=== PATIENT | male | born 2000 | race Caucasian/White ===

== ENCOUNTER 2023-11-23 11:53 | Outpatient (REF) | payer MEDICAID, SELFPAY ==
--- NOTE | ~2023-11-23 | XR_ITS ---
EXAMINATION: XR CALCANEUS, RIGHT XR CALCANEUS, LEFT CLINICAL INFORMATION: Pain. COMPARISON: None TECHNIQUE: Lateral and axial views of the right and left calcanei were obtained. FINDINGS: RIGHT CALCANEUS: No fracture. Alignment is anatomic. Joint spaces are maintained. Small enthesopathic spur is present at the Achilles tendon insertion on the calcaneus. LEFT CALCANEUS: No fracture. Alignment is anatomic. Joint spaces are maintained. Small enthesopathic spurs are present at the Achilles tendon insertion and plantar fascial origin on the calcaneus. XR/XR calcaneus RT min 2V IMPRESSION: Small enthesopathic spurs at the Achilles tendon insertions bilaterally and at the left plantar fascial origin. No acute osseous findings.
--- NOTE | ~2023-11-23 | XR_ITS ---
EXAMINATION: XR CALCANEUS, RIGHT XR CALCANEUS, LEFT CLINICAL INFORMATION: Pain. COMPARISON: None TECHNIQUE: Lateral and axial views of the right and left calcanei were obtained. FINDINGS: RIGHT CALCANEUS: No fracture. Alignment is anatomic. Joint spaces are maintained. Small enthesopathic spur is present at the Achilles tendon insertion on the calcaneus. LEFT CALCANEUS: No fracture. Alignment is anatomic. Joint spaces are maintained. Small enthesopathic spurs are present at the Achilles tendon insertion and plantar fascial origin on the calcaneus. XR/XR calcaneus LT min 2V IMPRESSION: Small enthesopathic spurs at the Achilles tendon insertions bilaterally and at the left plantar fascial origin. No acute osseous findings.
== END 2023-11-23 11:54 | disposition home or self-care (01) ==
LOC: HO.HMGCX 11:53
PROVIDERS: PCP Internal Medicine; Visit Provider Internal Medicine
DX: M77.32 Calcaneal spur, left foot (principal); M77.31 Calcaneal spur, right foot
CPT/HCPCS: 73650

== ENCOUNTER 2023-12-18 08:36 | Outpatient (REF) | payer MEDICAID, SELFPAY ==
--- NOTE | ~2023-12-18 | XR_ITS ---
EXAMINATION: XR ankle RT min 3V, XR ankle LT min 3V CLINICAL INFORMATION: Reason for Exam M25.579 - Pain in unspecified ankle and joints of unspecified foot COMPARISON: None. TECHNIQUE: AP, lateral, and oblique views of the bilateral feet FINDINGS: * No acute fracture or dislocation. * Joint spaces are maintained without significant degenerative change. * No soft tissue abnormality. XR/XR ankle LT min 3V IMPRESSION: No acute fracture or dislocation.
--- NOTE | ~2023-12-18 | XR_ITS ---
EXAMINATION: XR ankle RT min 3V, XR ankle LT min 3V CLINICAL INFORMATION: Reason for Exam M25.579 - Pain in unspecified ankle and joints of unspecified foot COMPARISON: None. TECHNIQUE: AP, lateral, and oblique views of the bilateral feet FINDINGS: * No acute fracture or dislocation. * Joint spaces are maintained without significant degenerative change. * No soft tissue abnormality. XR/XR ankle RT min 3V IMPRESSION: No acute fracture or dislocation.
== END 2023-12-18 08:37 | disposition home or self-care (01) ==
LOC: HO.HOSX 08:36
PROVIDERS: Visit Provider Physician Assistant
DX: M72.2 Plantar fascial fibromatosis (principal)
CPT/HCPCS: 73610; 99212

== ENCOUNTER 2023-12-18 09:09 | Outpatient (AMB) | payer MEDICAID, SELFPAY ==
--- NOTE | 2023-12-18 09:23 | MHC.OFFVIS ---
Vital Signs 12/18/23 09:34 Height 6 ft 1 in Weight 220 lb BMI 29.0 Intake Visit Reasons: New Pt - Bilateral Ankle Pain Intake Note: Evans is a 23 year old male who presents today with his mom as a new patient for a evaluation of his bilateral ankle pain. No hx of Injury/Treatment. Patient reports ongoing pain for many years and it hasn't been getting better. He states that his pain is mainly on his heal. Pain is equal on both ankles. Patient reveals that his pain is worse when walking for too long and finds relief when taking naproxen. Allergies No Known Allergies Allergy (Verified 12/18/23 09:34) HPI HPI New Pt - Bilateral Ankle Pain: Details: 23-year-old male who presents in the office today, as a new patient, for an evaluation of bilateral ankle pain. Patient denies a history of injury or any prior treatment for the pain. He states he has had ongoing pain for many years, with no relief over time. Claims most of the pain is in his heels. States pain is equal bilaterally. Pain increases with walking for too long. He finds relief by taking Naproxen. [facility] Social History (Updated 12/18/23 @ 09:34 by Janeen Child) Alcohol intake: current Alcohol intake frequency: a few times a month Patient Tobacco Use Status: Never used Tobacco Current occupational status: unemployed Review of Systems Const All systems reviewed & are unremarkable except as noted in HPI and below Physical Exam Vital Signs: BMI result Body Mass Index 29.0 Const General: cooperative and no acute distress Orientation/consciousness: patient oriented x3 Resp Effort & Inspection: normal respiratory effort and able to speak in complete sentences Cardio Peripheral pulses: Peripheral pulses 2+ throughout Skin General skin exam: no rashes or lesions noted Neuro General: patient oriented x3 Extrem Other: Bilateral foot/ankles: Normal to inspection. No ecchymosis, erythema, or edema. Patient is able to demonstrate dorsiflexion, plantar flexion, pronation and supination. Negative anterior drawer. Sensation intact. Pedal Pulse intact. Assessment & Plan Assessment & Plan (1) Plantar fasciitis, right: Code(s): M72.2 - Plantar fascial fibromatosis Category: Medical (2) Plantar fasciitis, left: Code(s): M72.2 - Plantar fascial fibromatosis Category: Medical Plan Mr. Reynoso is a 23-year-old male who presents in the office today, as a new patient, for an evaluation of bilateral ankle pain. Patient denies a history of injury or any prior treatment for the pain. He states he has had ongoing pain for many years, with no relief over time. Claims most of the pain is in his heels. States pain is equal bilaterally. Pain increases with walking for too long. He finds relief by taking Naproxen. Although his exam was benign, he reports his pain is worse in the morning and after ambulating and standing for a long period of time. His pain is along the plantar fascia and is able to point to the area during the exam. During the evaluation I demonstrated exercises that he could do on his own at home. I also recommended formal physical therapy. We discussed briefly the role of cortisone injections. However, this is not recommended at this time. His mother, who was present during the appointment, does not wish for this to be administered to her son as well. Should the exercises not give him relief the next step after physical therapy would be a referral to Podiatry. Follow up will be PRN, or sooner if needed. X-rays of the bilateral ankles which were obtained while in the office today and were reviewed by me, Qian Garnica PA-C, revealed no acute fracture or dislocation. Mild heel spurs on both the Achilles and plantar fascia tendons bilaterally. X-rays of the bilateral calcaneus, obtained on 12/01/2023, revealed: Right Calcaneus: No fracture. Alignment is anatomic. Joint spaces are maintained. Small enthesopathic spur is present at the Achilles tendon insertion on the calcaneus. Left Calcaneus: No fracture. Alignment is anatomic. Joint spaces are maintained. Small enthesopathic spurs are present at the Achilles tendon insertion and plantar fascial origin on the calcaneus. Orders: Orders XR ankle RT min 3V Today M25.579 - Pain in unspecified ankle and joints of unspecified foot XR ankle LT min 3V Today M25.579 - Pain in unspecified ankle and joints of unspecified foot Patient Instructions: Scribed by Bhumika Pritchard medical case worker, for Qian Garnica PA-C on 12/18/2023 at 9:13 am, EST. Coding Level of Care Code New Pt Level 4 (69130) Diagnoses Plantar fasciitis, right M72.2 Plantar fasciitis, left M72.2
[2023-12-18 09:34] VITALS: BMI 29.0
== END 2023-12-18 09:46 | disposition home or self-care (01) ==
PROVIDERS: PCP Internal Medicine; Visit Provider Physician Assistant
DX: M72.2 Plantar fascial fibromatosis (principal)
CPT/HCPCS: 99203

== ENCOUNTER 2024-01-21 10:00 | Outpatient (RCR) | payer MEDICAID, SELFPAY ==
--- NOTE | 2023-12-31 08:47 | MHC.PT.EP ---
[facility] [place] [facility] [place] [facility] [place] [facility] [address] [place] [address] [phone] F: [phone] F: [phone] F: [phone] F: [phone] Physical Therapy Plan of Care Date of Evaluation: 12/31/23 Date of Surgery: n/a Diagnosis: B plantar fasciitis Assessment: Patient is a 23 year old male presenting to PT with complaints of pain in his B feet. Pt reports onset of pain began 3-4 years ago due to insidious onset but used to work on his feet a lot. He presents today with impairments in pain, soft tissue density, muscle tightness. Pt's current occupation is none, with baseline physical activities including ambulating, stair negotiation, ADLs. Pt expresses longterm goal of reducing pain, and is motivated to work towards this in PT. Clinical presentation today is most consistent with signs and sx associated with B foot pain and pt will benefit from skilled PT 2 week x 4 weeks to address the following problems and impairments noted upon evaluation: pain, soft tissue density, muscle tightness. These problems limit the patient with the following functional activities: ambulating, stair negotiation, ADLs. The prescribed treatment plan of care is medically necessary. Co-morbidities of none were identified and taken into considerations of plan of care. Pt was educated on HEP, role of PT, prognosis, POC. Frequency and Duration: The patient will be seen 2 x week x 4 weeks Short Term Goals: Pt will demonstrate improved pain at rest to <3/10 in 2 weeks. Pt will demonstrate improved hip MMT strength in 2 weeks to at least 4/5. Pt will demonstrate improved gastroc and soleus length in 2 weeks. Chcf Goals: Pt will demonstrate improved LEFI score by 9 points in 4 weeks for improved functional mobility. Pt will demonstrate ability to ambulate community distances with min to no pain in 4 weeks for return to PLOF. Pt will demonstrate ability to negotiate stairs with min to no pain in 4 weeks for return to PLOF. Treatment Plan: Modalities to reduce pain, spasms and effusion. Manual therapy to restore motion and function. Therapeutic exercise to improve strength and flexibility. Neuromuscular re-education for posture and balance. Therapeutic activities to return to functional activities of daily living. Electronically signed by: Radha Kuhn, PT, DPT, ATC Please sign and return to therapist. Thank you for your referral.
--- NOTE | 2024-02-19 07:47 | MHC.PT.DC ---
[facility] [place] [facility] [place] [facility] [place] Office [address] [place] [address] [facility] [phone] F: [phone] F: [phone] F: [phone] F: [phone] Physical Therapy Discharge Report Diagnosis: B plantar fasciitis Date of Surgery: n/a Date of Evaluation: 12/31/23 Date of Discharge: 02/19/24 Treatments to Date: 6 Cancellations to Date: 1 No Shows to Date: 0 Discharge Status: Discharge Summary: Pt has not attended skilled PT in 30 days and therefore to be d/c. Electronically signed by: Radha Kuhn, PT, DPT, ATC Please sign and return to therapist. Thank you for your referral.
== END 2024-02-19 07:48 | disposition home or self-care (01) ==
LOC: HO.PTCHIC 10:00
PROVIDERS: PCP Internal Medicine; Visit Provider Physician Assistant
DX: M72.2 Plantar fascial fibromatosis (principal)
CPT/HCPCS: 97110; 97112; 97161